=== PATIENT | female | born 1950 | race African-American/Black ===

== ENCOUNTER → 2020-03-31 | Day surgery (SDC) | payer OTHER ==
[2020-03-27 17:43] VITALS: BMI 20.9
[~2020-03-31] MED LIST: LIDOCAINE HCL/PF 2% SDV 5ML VIAL ONE; PROPOFOL 20 ML ONE
[2020-03-31 11:20] VITALS: TEMP 98.3
[2020-03-31 14:03] VITALS: BP 112/71; PULSE 65
--- NOTE | 2020-04-03 16:49 | PATH ---
Surgical Pathology Report Patient Name: MONIQUE SALAZAR [facility]. Rec. #: [id number] /Age/Gender: 1950 (Age: 69) / F Account: [id number] Location: [facility] AM[facility]UL[facility] Taken: 03/31/2020 Received: 03/31/2020 Reported: 04/03/2020 Physicians: Alfonso Jeronimo M.D. Specimen(s) Received A: ANTRUM B: BODY OF STOMACH C: DISTAL ESOPHAGUS Clinical History R/o polyps. GERD/gastritis/hemorrhoids Final Diagnosis A. ANTRUM, BIOPSY: GASTRIC MUCOSA WITH CHRONIC GASTRITIS. IMMUNOSTAIN FOR H. PYLORI IS NEGATIVE. NEGATIVE FOR INTESTINAL METAPLASIA. B. BODY OF STOMACH, BIOPSY: GASTRIC MUCOSA WITH CHRONIC GASTRITIS. IMMUNOSTAIN FOR H. PYLORI IS NEGATIVE. NEGATIVE FOR INTESTINAL METAPLASIA. C. DISTAL ESOPHAGUS, BIOPSY: SQUAMOUS MUCOSA WITH MILD REFLUX ESOPHAGITIS. NEGATIVE FOR INTESTINAL METAPLASIA. Electronically Signed Renetta Maharaj M.D. Gross Description A. Received in formalin, labeled "antrum" are 2 malcolm, irregular portions of soft tissue each measuring 0.3 cm. in greatest dimension. The specimens are submitted in toto in one cassette. B. Received in formalin, labeled "body of stomach" are 3 malcolm, irregular portions of soft tissue each measuring 0.2 cm. in greatest dimension. The specimens are submitted in toto in one cassette. C. Received in formalin, labeled "distal esophagus" are 2 malcolm, irregular portions of soft tissue measuring 0.2 cm and 0.3 cm. in greatest dimension. The specimens are submitted in toto in one cassette. AE/03/31/2020 ebram/03/31/2020
== END | disposition home or self-care (01) ==
LOC: FASU 10:38
PROVIDERS: ATTEND Internal Medicine Gastroenterology
PROC: 0DB38ZX Excision of Lower Esophagus, Via Natural or Artificial Opening Endoscopic, Diagnostic (ICD-10-PCS; 2020-03-31)
PROC: 0DB68ZX Excision of Stomach, Via Natural or Artificial Opening Endoscopic, Diagnostic (ICD-10-PCS; 2020-03-31)
PROC: 0DJD8ZZ Inspection of Lower Intestinal Tract, Via Natural or Artificial Opening Endoscopic (ICD-10-PCS; principal; 2020-03-31 13:00)
DX: Z86.010 Personal history of colon polyps (principal); K64.8 Other hemorrhoids; K29.50 Unspecified chronic gastritis without bleeding; K21.9 Gastro-esophageal reflux disease without esophagitis; K21.0 Gastro-esophageal reflux disease with esophagitis; R68.81 Early satiety; R06.6 Hiccough
CPT/HCPCS: 43239; G0105; 82962; 88305-TC; 88342-TC

== ENCOUNTER 2022-05-27 04:28 | Day surgery (SDC) | payer OTHER ==
[2022-05-24 12:58] VITALS: BMI 21.9
[2022-05-27] MEDS ORDERED: LIDOCAINE HCL/PF 2% SDV 5ML VIAL ONE (11:17)
[2022-05-27] MEDS ORDERED: oxyCODONE HCL 5 MG TABLET PO PRN (11:18)
[2022-05-27] MEDS ORDERED: IBUPROFEN 400 MG TABLET (FP) PO PRN (11:18)
[2022-05-27] MEDS ORDERED: ACETAMINOPHEN 325 MG TABLET (FP) PO PRN (11:18)
[2022-05-27] MEDS ORDERED: MIDAZOLAM HCL 2 MG/2 ML SINGLE DOSE VIAL ONE (11:18)
[2022-05-27] MEDS ORDERED: ONDANSETRON 4 MG/2 ML VIAL IVPUSH PRN ×2 (11:19→12:39)
[2022-05-27] MEDS ORDERED: LIDOCAINE 1%/EPI 1:100000 (20 ML MULTI DOSE VIAL) ONE (11:40)
[2022-05-27] MEDS ORDERED: PROPOFOL 20 ML ONE (11:55)
[2022-05-27] MEDS ORDERED: ceFAZolin SODIUM 1 GM VIAL IVPB ONE (11:59)
[2022-05-27] MEDS ORDERED: IODINE/POTASSIUM IODIDE 5%/10% 14 ML BOTTLE NR ONE (12:12)
[2022-05-27] MEDS ORDERED: LIDOCAINE 1%/EPI 1:100000 (20 ML MULTI DOSE VIAL) IJ ONE (12:13)
[2022-05-27] MEDS ORDERED: FERRIC SUBSULFATE 500 ML BOTTLE TP ONE (12:15)
[2022-05-27] MEDS ORDERED: LACTATED RINGERS SOLUTION 1,000 ML IV SCH (12:45)
[2022-05-27 14:05] VITALS: RESP 18
[2022-05-27 14:55] VITALS: BP 125/64; PULSE 75; TEMP 97.2
== END 2022-05-27 15:19 | disposition home or self-care (01) ==
LOC: JASU-SURG 04:28
PROVIDERS: ATTEND Obstetrics & Gynecology
PROC: 0UBC7ZX Excision of Cervix, Via Natural or Artificial Opening, Diagnostic (ICD-10-PCS; principal; 2022-05-27 11:00)
DX: D06.7 Carcinoma in situ of other parts of cervix (principal)
CPT/HCPCS: 82962; 86850; 86900; 86901; 88305-TC; 88307-TC; 88342-TC; 94760